=== PATIENT | female | born 1990 | race Caucasian/White ===

== ENCOUNTER 2018-09-09 20:32 | Emergency (ER) | payer OTHER ==
[~2018-09-09] VITALS: Ht 149.9 cm; Wt 74.2 kg
[~2018-09-09 20:32] MED LIST: FERR256T PO; PREN1TAB31 PO
[2018-09-09 20:47] VITALS: BP 143/85; PULSE 69; RESP 18; Ht 149.9 cm; Wt 74.2 kg
[2018-09-09] MEDS ORDERED: HYDROCODONE/APAP (5/325) TAB PO ONE (23:00)
[2018-09-09] MEDS ORDERED: HYDR-4011 PO (23:41)
[2018-09-09] MEDS ORDERED: NAPR-985 PO (23:41)
--- NOTE | 2018-09-10 00:49 | ERD ---
ER Documentation Chief Complaint Chief Complaint right ankle pain while jumping on trampoline x 30 minutes ago HPI 28-year-old female with no significant medical history presenting to the e mergency department complaining of constant, 10/10, right ankle pain after inverting it on a trampoline accidentally just prior to arrival. Pain is worse with walking. She is tried no medication for relief of symptoms. She denies any head injury or loss of consciousness or other symptoms or injuries at this time. ROS All systems reviewed and are negative except as per history of present illness. Medications Home Meds Active Scripts Naproxen* (Naprosyn*) 500 Mg Tablet, 500 MG PO BID PRN for PAIN AND/OR INFLAMMATION, #30 TAB Prov:SHAR GRIFFIN PA-C 09/09/18 Hydrocodone/Acetaminophen ([place] 5-325 Tablet) 1 Each Tablet, 1 TAB PO Q6H PRN for PAIN, #7 TAB Prov:SHAR GRIFFIN PA-C 09/09/18 Reported Medications Ferrous Gluconate (Iron) 256 Mg Tablet, 256 MG PO BEFORE MEALS 12/05/13 Vits #90-Iron Fum-FA ( Formula) 1 Each Tablet, 1 EACH PO DAILY 12/05/13 Allergies Allergies: Coded Allergies: No Known Allergies (Verified Allergy, Unknown, 09/09/18) Uncoded Allergies: NKDA (Allergy, Unknown, 12/05/13) SHRIMP ALLERGEY, REACTION IS SWOLLEN GUMS PMhx/Soc Medical and Surgical Hx: pt denies Medical Hx, pt denies Surgical Hx Hx Alcohol Use: No Hx Substance Use: No Hx Tobacco Use: No Smoking Status: Never smoker FmHx Family History: No diabetes Physical Exam Vitals Vital Signs Date Temp Pulse Resp B/P (MAP) Pulse Ox O2 O2 Flow FiO2 Time Delivery Rate 09/09/18 98.1 69 18 143/85 100 20:47 (104) Physical Exam Const: No acute distress Head: Atraumatic Eyes: Normal Conjunctiva ENT: Normal External Ears, Nose and Mouth. Neck: Full range of motion. No meningismus. Resp: No respiratory distress. Skin: No petechiae or rashes Ext: Tenderness to palpation and edema noted to the right lateral malleolus. No open fracture noted. Patient is neurovascularly intact distally. 2+ DP pulses on the right lower extremity. Neur: Awake and alert Psych: Normal Mood and Affect Results 24 hrs Current Medications Medications Dose Sig/Charles Start Time Status Last (Trade) Ordered Route PRN Stop Time Admin Dose Reason Admin 1 tab ONCE ONCE 09/09/18 DC 09/09/18 Acetaminophen PO 23:00 22:44 / 09/09/18 Hydrocodone 23:01 Bitart ([place] (5/325)) [place] [id number] Radiology Main Line: [phone] DIAGNOSTIC IMAGING REPORT Patient: LISA JOSEPH : 1990 Age: 28 Sex: F MR #: [id number] DOS: 09/09/18 0000 Ordering MD: SHAR GRIFFIN PA-C Location: [facility] Room/Bed: AMENDMENT: 09/10/2018 12:50:55 AM Anupam Bonilla M.d Addendum: IMPRESSION: 1. Transverse fracture in the distal right fibula with mild dorsal angulation of the distal fracture fragment. 2. Severe soft tissue swelling over the and lateral ankle without evidence of underlying fracture. The above findings were discussed with Patient's physician Shar Griffin Pa-C by telephone on 09/10/2018 12:50:41 AM. Procedures/MDM 28-year-old female presenting to the emergency department complaining of right ankle injury. X-ray showed a right-sided distal fibula fracture. Patient was administered [place] in the department with good response. Patient required splinting for immobilization of fracture. Splint Assessment: Neurovascularly intact post splint placement with good fit. Patient's extremity symptoms have stabilized while they have been evaluated in the department and are appropriate for outpatient follow up. No evidence of compartment syndrome, neurologic injury, vascular injury, open joint, open fracture, tendon laceration, or foreign body. I did recommend for 24-48-hour follow-up with orthopedic physician. The patient agreed with the diagnosis, plan, need for follow-up, return precautions. Patient's blood pressure was elevated (>120/80) but appears stable without evidence of hypertension emergency or urgency. The patient is to follow-up and pursue outpatient monitoring and therapy with their primary care physician within 1 week and return immediately if they have any new, worsening, or concerning symptoms. Disclaimer: Inadvertent spelling and grammatical errors are likely due to EHR/dictation software use and do not reflect on the overall quality of patient care. Also, please note that the electronic time recorded on this note does not necessarily reflect the actual time of the patient encounter. Departure Diagnosis: Primary Impression: Closed fracture of right distal fibula Encounter type: initial encounter Fracture morphology: unspecified fracture morphology Qualified Codes: S82.831A - Other fracture of upper and lower end of right fibula, initial encounter for closed fracture Condition: Fair Patient Instructions: Ankle Fracture (Distal Fibula), Closed Referrals: [facility] 7 a.m.- 11 p.m. Every Day of the Week NO APPOINTMENT OR AUTHORIZATION NEEDED [facility] Hours: Mon-Fri 9:00 AM - 5:00 PM Additional Instructions: SPECIALIST: YOU HAVE A MEDICAL CONDITION WHICH REQUIRES YOU TO SEE A SPECIALIST WITHIN THE NEXT 1-2 DAYS. PLEASE FOLLOW UP WITH YOUR PRIMARY PHYSICIAN FOR REFFERAL.IF YOU DO NOT HAVE A PRIMARY CARE PHYSICIAN AND/OR YOU CAN NOT AFFORD TO SEE A PHYSICIAN THE FOLLOWING RESOURCES HAVE BEEN SUPPLIED TO YOU. IT IS YOUR RESPONSIBILITY TO BE SEEN BY THE SPECIALIST: ORTHOPEDICS SHAR GRIFFIN PA-C Sep 10, 2018 00:49
== END 2018-09-10 01:03 | disposition home or self-care (01) ==
LOC: FTE 20:32
DX: S82.831A Other fracture of upper and lower end of right fibula, initial encounter for closed fracture (principal); X58.XXXA Exposure to other specified factors, initial encounter; Y92.9 Unspecified place or not applicable
CPT/HCPCS: 29515; 73610; Z7502; Z7610